=== PATIENT | male | born 1980 | race Caucasian/White ===

== ENCOUNTER 2019-03-19 15:14 | Emergency (ER) | payer MEDICAID ==
[~2019-03-19] VITALS: Ht 167.6 cm; Wt 89.4 kg
[2019-03-19 15:49] VITALS: Ht 167.6 cm; Wt 89.4 kg
[2019-03-19 20:04] VITALS: BP 120/70
== END 2019-03-19 20:05 | disposition home or self-care (01) ==
LOC: ED 15:14
DX: L02.415 Cutaneous abscess of right lower limb (principal)
CPT/HCPCS: J2001

== ENCOUNTER 2019-03-21 10:26 | Emergency (ER) | payer MEDICAID ==
[~2019-03-21] VITALS: Ht 177.8 cm; Wt 88.9 kg
[2019-03-21 10:30] VITALS: Ht 177.8 cm; Wt 88.9 kg
[2019-03-21 11:33] VITALS: BP 138/82
== END 2019-03-21 11:33 | disposition home or self-care (01) ==
LOC: ED 10:26
DX: L02.415 Cutaneous abscess of right lower limb (principal); J45.909 Unspecified asthma, uncomplicated; F17.210 Nicotine dependence, cigarettes, uncomplicated
CPT/HCPCS: 99406